=== PATIENT | male | born 1935 | race Caucasian/White ===

== ENCOUNTER 2023-07-18 23:58 | Inpatient (IN) | payer OTHER ==
[2023-07-19 01:19] LABS: ALT (SGPT) 18 U/L (8-55); AST (SGOT) 23 U/L (5-34); Albumin 3.2 g/dL (3.4-4.8); Alkaline Phosphatase 35 U/L (40-110); Anion Gap 15 mmol/L (10-20); BUN (Urea Nitrogen) 31 mg/dL (8.4-25.7); Bilirubin, Total 0.9 mg/dL (0.2-1.2); Calc. Creatinine Clearance 0 mL/min (70-130); Calcium 8.8 mg/dL (7.8-10.44); Carbon Dioxide 21 mmol/L (23-31); Chloride 109 mmol/L (98-107); Estimated GFR 67; Globulin 2.8 g/dL (2.4-3.5); Glucose 140 mg/dL (83-110); Lipase 6 U/L (8-78); Magnesium 1.5 mg/dL (1.6-2.6); Potassium 4.1 mmol/L (3.5-5.1); Sodium 141 mmol/L (136-145)
[2023-07-19 01:23] LABS: Critical Call Chem-Lactate ERS.CG1@0123
[2023-07-19 01:26] LABS: Troponin I Less than 0.010 ng/mL (< 0.028)
[2023-07-19] MEDS ORDERED: Piperacillin/Tazobactam 3.375 GM VIAL ONE (01:34)
[2023-07-19] MEDS ORDERED: Vancomycin 1 GM VIAL ONE (01:35)
[2023-07-19] MEDS ORDERED: Magnesium 2 GM/50 ML BAG (IN WATER) ONE (01:36)
[2023-07-19 01:42] LABS: Hematocrit 42.8 % (38.8-50.0); Hemoglobin 14.3 g/dL (13.5-17.5); Mean Corpuscular HGB CONC 33.4 g/dL (32.0-36.0); Mean Corpuscular Volume 98.8 fl (81.2-95.1); Mean Platelet Volume 10.3 fl (7.4-10.4); Platelet Count 178 10x3/uL (150-450); RBC Distribution Width 14.1 % (11.5-14.5); Red Blood Cell (RBC) Count 4.33 10x6/uL (4.32-5.72); White Blood Cell (WBC) Count 3.8 10x3/uL (3.5-10.5)
[2023-07-19 01:44] LABS: Bilirubin Neg (Negative); Blood, Urine Negative (Negative); Clarity Cloudy (Clear); Glucose, Urine (Dipstick) Normal (Negative); Ketone, Urine 5 mg/dL (Negative); Leukocyte 100 (Negative); Nitrite Negative (Negative); Protein, Urine (Dipstick) 30 mg/dl (Neg-Trace); Specific Gravity, Urine 1.025 (1.005-1.030); Urobilinogen Normal mg/dL (Less than 2)
[2023-07-19] MEDS ORDERED: Communication Order-Pharmacy FS PRN (01:48)
[2023-07-19] MEDS ORDERED: Ondansetron PF 4 MG/2 ML Vial IVP PRN (01:48)
[2023-07-19] MEDS ORDERED: Glucagon 1 MG/ML KIT IM PRN (01:48)
[2023-07-19] MEDS ORDERED: Acetaminophen 650 MG Suppository PR PRN (01:48)
[2023-07-19] MEDS ORDERED: Dextrose 5% in Water 1,000 ML IV PRN (01:48)
[2023-07-19] MEDS ORDERED: Ondansetron ODT 4 MG TAB PO PRN (01:48)
[2023-07-19] MEDS ORDERED: Dextrose 50% Abboject 50 ML SYRINGE SLOW IVP PRN (01:48)
[2023-07-19] MEDS ORDERED: HumaLOG 300 UNITS/3 ML VIAL SC PRN ×2 (01:48)
[2023-07-19 01:53] LABS: Band 16 % (5-11); Lymphocytes 19 % (21-51); Metamyelocyte 27 % (0-0); Myelocyte 11 % (0-0); Reactive Lymphocytes 23 % (0-10)
[2023-07-19 01:55] LABS: Bacteria/HPF 2+ HPF (None Seen); CAUTI Indications for Culture Alt mental st,lethar; Squamous Epithelial 0-3 HPF (0-3)
[2023-07-19 01:56] LABS: Urine Culture Reflex No No
[2023-07-19] MEDS ORDERED: cefTRIAXone\\ROCEPHIN 2 GM in Sodium Chloride 0.9% 100 ML IVPB SCH (02:00)
[2023-07-19 02:05] LABS: Reflex for Review?? YES
[2023-07-19 02:09] LABS: Dohle Bodies SLIGHT
[2023-07-19 02:10] LABS: Platelet Adequacy Comment Appears Adequate
[2023-07-19 02:12] LABS: MDiff Complete? YES
[2023-07-19 02:17] LABS: SARS-CoV-2 NAA Rapid Test Not Detected (NotDetected)
[2023-07-19 04:10] LABS: ALT (SGPT) 19 U/L (8-55); AST (SGOT) 24 U/L (5-34); Albumin 3.2 g/dL (3.4-4.8); Alkaline Phosphatase 36 U/L (40-110); Anion Gap 16 mmol/L (10-20); BUN (Urea Nitrogen) 28 mg/dL (8.4-25.7); Bilirubin, Total 1.1 mg/dL (0.2-1.2); Calc. Creatinine Clearance 0 mL/min (70-130); Calcium 8.6 mg/dL (7.8-10.44); Carbon Dioxide 20 mmol/L (23-31); Chloride 110 mmol/L (98-107); Estimated GFR 77; Globulin 2.7 g/dL (2.4-3.5); Glucose 129 mg/dL (83-110); Phosphorus 2.1 mg/dL (2.3-4.7); Potassium 4.1 mmol/L (3.5-5.1); Protein, Total 5.9 g/dL (5.8-8.1); Sodium 142 mmol/L (136-145)
[2023-07-19 04:11] LABS: Critical Call Chem-Lactate ERS.CG1@0410; Lactic Acid 4.4 mmol/L (0.5-2.2)
[2023-07-19 04:41] LABS: Hematocrit 40.8 % (38.8-50.0); Hemoglobin 13.9 g/dL (13.5-17.5); Mean Corpuscular HGB CONC 34.1 g/dL (32.0-36.0); Mean Corpuscular Hemoglobin 33.4 pg (27.0-33.0); Mean Corpuscular Volume 98.1 fl (81.2-95.1); Mean Platelet Volume 10.4 fl (7.4-10.4); Platelet Count 156 10x3/uL (150-450); RBC Distribution Width 14.5 % (11.5-14.5); Red Blood Cell (RBC) Count 4.16 10x6/uL (4.32-5.72); White Blood Cell (WBC) Count 4.5 10x3/uL (3.5-10.5)
[2023-07-19] MEDS ORDERED: Azithromycin 500 MG VIAL ONE (04:54)
[2023-07-19 04:55] LABS: Band 15 % (5-11); Eosinophils 1 % (0-10); Lymphocytes 24 % (21-51); Metamyelocyte 45 % (0-0); Myelocyte 7 % (0-0); Nucleated RBC (Manual Ct) 1 % (0); Other Cell Types 3; Promyelocytes 1 % (0-0); Reactive Lymphocytes 3 % (0-10)
[2023-07-19 04:58] LABS: MDiff Complete? YES; Platelet Adequacy Comment Appears Adequate
[2023-07-19] MEDS: Azithromycin 500 MG in Sodium Chloride 0.9% 250 ML 250 ML IVPB SCH (06:04)
[2023-07-19] MEDS: Lactated Ringer's 1,000 ML IV SCH ×2 (06:04→23:41)
[2023-07-19] MEDS ORDERED: Iopamidol 370 76% 100 ML VIAL ONE (08:57)
[2023-07-19] MEDS ORDERED: Famotidine/PF 20 mg/2ml Vial SLOW IVP SCH (09:00)
[2023-07-19] MEDS ORDERED: Enoxaparin 40 MG (0.4 mL) SYRINGE ONE (09:16)
[2023-07-19] MEDS ORDERED: Cefepime 2 GM VIAL ONE (09:16)
[2023-07-19] MEDS ORDERED: Clopidogrel Bisulfate 75 MG TAB ONE (09:16)
[2023-07-19] MEDS ORDERED: Famotidine/PF 20 mg/2ml Vial ONE (09:16)
[2023-07-19] MEDS: Enoxaparin 40 MG (0.4 mL) SYRINGE SC SCH (09:19)
[2023-07-19] MEDS: Clopidogrel Bisulfate 75 MG TAB PO SCH (09:19)
[2023-07-19] MEDS: Cefepime 2 GM in Sodium Chloride 0.9% 100 ML IVPB SCH (09:19)
[2023-07-19] MEDS ORDERED: Famotidine/PF 20 mg/2ml Vial SLOW IVP PRN (16:15)
[2023-07-19 22:38] VITALS: BMI 24.4
[2023-07-19] MEDS ORDERED: Furosemide 20 MG (2 mL) VIAL SLOW IVP SCH (23:30)
[2023-07-20] MEDS: Vancomycin 1 GM in Sodium Chloride 0.9% 250 ML 250 ML IVPB SCH ×2 (00:25→13:42)
[2023-07-20] MEDS: Famotidine 20 MG TAB PO SCH ×4 (00:26→21:34)
[2023-07-20] MEDS: Atorvastatin Calcium 40 MG TAB PO SCH ×2 (00:53→21:34)
[2023-07-20] MEDS: Cefepime 2 GM in Sodium Chloride 0.9% 100 ML IVPB SCH ×3 (00:53→21:35)
[2023-07-20] MEDS ORDERED: FLU VACC QS2023(65UP)/MF59C/PF 60 MCG/0.5 ML SYRINGE IM ONE (02:00)
[2023-07-20 04:42] LABS: Hematocrit 35.4 % (38.8-50.0); Hemoglobin 12.2 g/dL (13.5-17.5); Mean Corpuscular HGB CONC 34.5 g/dL (32.0-36.0); Mean Corpuscular Hemoglobin 33.3 pg (27.0-33.0); Mean Corpuscular Volume 96.7 fl (81.2-95.1); Mean Platelet Volume 10.5 fl (7.4-10.4); Platelet Count 145 10x3/uL (150-450); RBC Distribution Width 14.2 % (11.5-14.5); Red Blood Cell (RBC) Count 3.66 10x6/uL (4.32-5.72)
[2023-07-20 04:46] LABS: ALT (SGPT) 17 U/L (8-55); AST (SGOT) 25 U/L (5-34); Albumin 2.9 g/dL (3.4-4.8); Alkaline Phosphatase 45 U/L (40-110); Anion Gap 12 mmol/L (10-20); BUN (Urea Nitrogen) 22 mg/dL (8.4-25.7); Bilirubin, Total 0.7 mg/dL (0.2-1.2); Calc. Creatinine Clearance 66 mL/min (70-130); Calcium 8.8 mg/dL (7.8-10.44); Carbon Dioxide 23 mmol/L (23-31); Chloride 108 mmol/L (98-107); Estimated GFR 85; Globulin 2.8 g/dL (2.4-3.5); Glucose 113 mg/dL (83-110); Magnesium 1.9 mg/dL (1.6-2.6); Potassium 3.4 mmol/L (3.5-5.1); Protein, Total 5.7 g/dL (5.8-8.1); Sodium 140 mmol/L (136-145)
[2023-07-20 05:20] LABS: Band 26 % (5-11); Lymphocytes 11 % (21-51); Metamyelocyte 44 % (0-0); Monocytes 2 % (0-10); Myelocyte 4 % (0-0); Neutrophil 6 % (42-75); Other Cell Types 1; Reactive Lymphocytes 6 % (0-10)
[2023-07-20 05:22] LABS: Poikilocytosis SLIGHT = 6-15 cells (100X) (0-5/hpf)
[2023-07-20 05:23] LABS: Crenated RBC SLIGHT = 1-5 cells (100X) (None Seen); MDiff Complete? YES; Platelet Adequacy Comment Appears Adequate
[2023-07-20 05:27] LABS: White Blood Cell (WBC) Count 10.8 10x3/uL (3.5-10.5)
[2023-07-20] MEDS: Azithromycin 500 MG in Sodium Chloride 0.9% 250 ML 250 ML IVPB SCH (05:41)
[2023-07-20 06:19] LABS: Bilirubin Neg (Negative); Blood, Urine 25 (Negative); Clarity Clear (Clear); Glucose, Urine (Dipstick) Normal (Negative); Ketone, Urine Negative (Negative); Leukocyte Negative (Negative); Nitrite Negative (Negative); Protein, Urine (Dipstick) 30 mg/dl (Neg-Trace); Specific Gravity, Urine 1.015 (1.005-1.030); Urobilinogen Normal mg/dL (Less than 2)
[2023-07-20] MEDS: Acetaminophen 325 MG TAB PO PRN ×2 (06:41→10:16)
[2023-07-20 07:06] LABS: Legionella Urinary Ag Negative (Negative)
[2023-07-20 08:09] LABS: Oval Fat Bodies/HPF Rare HPF (None Seen)
[2023-07-20 08:10] LABS: Bacteria/HPF None Seen HPF (None Seen); RBC/HPF 0-3 HPF (0-3); Squamous Epithelial 0-3 HPF (0-3); WBC/HPF 0-3 HPF (0-3)
[2023-07-20] MEDS: Enoxaparin 40 MG (0.4 mL) SYRINGE SC SCH (10:15)
[2023-07-20] MEDS: Clopidogrel Bisulfate 75 MG TAB PO SCH (10:15)
[2023-07-20 13:46] LABS: Hemoglobin A1c 6.6 % (4.0-6.0)
[2023-07-20] MEDS ORDERED: Furosemide 20 MG (2 mL) VIAL SLOW IVP SCH (16:00)
[2023-07-20] MEDS ORDERED: Potassium Chloride 20 MEQ TAB PO SCH (17:00)
[2023-07-21 05:52] LABS: ALT (SGPT) 21 U/L (8-55); AST (SGOT) 23 U/L (5-34); Alkaline Phosphatase 51 U/L (40-110); Anion Gap 11 mmol/L (10-20); BUN (Urea Nitrogen) 21 mg/dL (8.4-25.7); Bilirubin, Total 0.8 mg/dL (0.2-1.2); Calc. Creatinine Clearance 73 mL/min (70-130); Calcium 8.8 mg/dL (7.8-10.44); Carbon Dioxide 25 mmol/L (23-31); Chloride 106 mmol/L (98-107); Estimated GFR 87; Globulin 3.1 g/dL (2.4-3.5); Glucose 101 mg/dL (83-110); Potassium 3.2 mmol/L (3.5-5.1); Protein, Total 6.1 g/dL (5.8-8.1); Sodium 139 mmol/L (136-145)
[2023-07-21] MEDS: Azithromycin 500 MG in Sodium Chloride 0.9% 250 ML 250 ML IVPB SCH (05:52)
[2023-07-21 05:58] LABS: Hematocrit 36.3 % (38.8-50.0); Hemoglobin 12.9 g/dL (13.5-17.5); Mean Corpuscular HGB CONC 35.5 g/dL (32.0-36.0); Mean Corpuscular Hemoglobin 33.9 pg (27.0-33.0); Mean Corpuscular Volume 95.5 fl (81.2-95.1); Mean Platelet Volume 10.5 fl (7.4-10.4); Platelet Count 160 10x3/uL (150-450); RBC Distribution Width 13.8 % (11.5-14.5); White Blood Cell (WBC) Count 12.7 10x3/uL (3.5-10.5)
[2023-07-21] MEDS: Acetaminophen 325 MG TAB PO PRN ×2 (06:24→21:35)
[2023-07-21 06:38] LABS: MDiff Complete? YES
[2023-07-21 06:51] LABS: Band 33 % (5-11); Eosinophils 1 % (0-10); Lymphocytes 12 % (21-51); Metamyelocyte 11 % (0-0); Monocytes 4 % (0-10); Myelocyte 2 % (0-0); Neutrophil 37 % (42-75)
[2023-07-21 06:52] LABS: Anisocytosis MODERATE=16-30 cells (100X) (0-5/hpf)
[2023-07-21 06:53] LABS: Crenated RBC SLIGHT = 1-5 cells (100X) (None Seen); Poikilocytosis SLIGHT = 6-15 cells (100X) (0-5/hpf)
[2023-07-21 06:57] LABS: Platelet Adequacy Comment Appears Adequate
[2023-07-21 07:46] LABS: Vancomycin, Trough 6.8 ug/mL
[2023-07-21] MEDS ORDERED: Vancomycin 1 GM in Sodium Chloride 0.9% 250 ML 250 ML IVPB SCH (08:00)
[2023-07-21] MEDS: Enoxaparin 40 MG (0.4 mL) SYRINGE SC SCH (08:53)
[2023-07-21] MEDS: Clopidogrel Bisulfate 75 MG TAB PO SCH (08:54)
[2023-07-21] MEDS: Cefepime 2 GM in Sodium Chloride 0.9% 100 ML IVPB SCH ×2 (08:54→21:37)
[2023-07-21] MEDS: Famotidine 20 MG TAB PO SCH ×2 (08:54→21:36)
[2023-07-21] MEDS: Atorvastatin Calcium 40 MG TAB PO SCH (21:36)
[2023-07-22 05:17] LABS: ALT (SGPT) 35 U/L (8-55); AST (SGOT) 29 U/L (5-34); Albumin 3.1 g/dL (3.4-4.8); Alkaline Phosphatase 57 U/L (40-110); Anion Gap 11 mmol/L (10-20); BUN (Urea Nitrogen) 18 mg/dL (8.4-25.7); Bilirubin, Total 0.8 mg/dL (0.2-1.2); Calc. Creatinine Clearance 71 mL/min (70-130); Calcium 9.2 mg/dL (7.8-10.44); Carbon Dioxide 26 mmol/L (23-31); Chloride 106 mmol/L (98-107); Estimated GFR 87; Globulin 3.4 g/dL (2.4-3.5); Glucose 106 mg/dL (83-110); Potassium 3.4 mmol/L (3.5-5.1); Protein, Total 6.5 g/dL (5.8-8.1); Sodium 140 mmol/L (136-145)
[2023-07-22 05:30] LABS: Hematocrit 38.1 % (38.8-50.0); Hemoglobin 13.4 g/dL (13.5-17.5); Mean Corpuscular HGB CONC 35.2 g/dL (32.0-36.0); Mean Corpuscular Hemoglobin 33.5 pg (27.0-33.0); Mean Corpuscular Volume 95.3 fl (81.2-95.1); Mean Platelet Volume 10.3 fl (7.4-10.4); Platelet Count 169 10x3/uL (150-450); White Blood Cell (WBC) Count 9.5 10x3/uL (3.5-10.5)
[2023-07-22 05:32] LABS: MDiff Complete? YES
[2023-07-22 06:29] LABS: Band 9 % (5-11); Eosinophils 4 % (0-10); Lymphocytes 12 % (21-51); Monocytes 11 % (0-10); Neutrophil 62 % (42-75); Reactive Lymphocytes 2 % (0-10)
[2023-07-22 06:32] LABS: RBC Morph Comment Within Normal Limits
[2023-07-22 06:33] LABS: Platelet Adequacy Comment Appears Adequate
[2023-07-22] MEDS: Famotidine 20 MG TAB PO SCH ×2 (09:13→21:00)
[2023-07-22] MEDS: Clopidogrel Bisulfate 75 MG TAB PO SCH (09:13)
[2023-07-22] MEDS: Enoxaparin 40 MG (0.4 mL) SYRINGE SC SCH (09:14)
[2023-07-22] MEDS: Cefepime 2 GM in Sodium Chloride 0.9% 100 ML IVPB SCH ×2 (09:26→20:59)
[2023-07-22] MEDS: Acetaminophen 325 MG TAB PO PRN (09:33)
[2023-07-22] MEDS ORDERED: guaiFENesin/Codeine Phosphate 100 mg/10 mg 5 ml UD Cup PO PRN (14:49)
[2023-07-22] MEDS ORDERED: Polyethylene Glycol 3350 17 GM Packet PO SCH (15:00)
[2023-07-22] MEDS: Atorvastatin Calcium 40 MG TAB PO SCH (21:00)
[2023-07-23] MEDS ORDERED: Polyethylene Glycol 3350 17 GM Packet PO SCH (09:00)
[2023-07-23] MEDS: Cefepime 2 GM in Sodium Chloride 0.9% 100 ML IVPB SCH (09:36)
[2023-07-23] MEDS: Clopidogrel Bisulfate 75 MG TAB PO SCH (09:37)
[2023-07-23] MEDS: Enoxaparin 40 MG (0.4 mL) SYRINGE SC SCH (09:37)
[2023-07-23] MEDS: Famotidine 20 MG TAB PO SCH (09:37)
[2023-07-23] MEDS: Acetaminophen 325 MG TAB PO PRN (12:41)
[2023-07-23] MEDS ORDERED: Amlodipine 10 MG TAB PO SCH ×2 (13:00)
[2023-07-23 14:10] VITALS: BP 179/87; TEMP 97.3
[2023-07-24] MEDS ORDERED: Amlodipine 10 MG TAB PO SCH (09:00)
== END 2023-07-23 17:00 | disposition home or self-care (01) | DRG 871 ==
LOC: CSHERS 23:58 → CSHERHOLD 07-19 01:48 → CSHTELE 07-19 20:33
PROVIDERS: ADMIT Family Medicine; ATTEND Internal Medicine
DX: A40.3 Sepsis due to Streptococcus pneumoniae (principal); J13 Pneumonia due to Streptococcus pneumoniae; J96.01 Acute respiratory failure with hypoxia; R65.20 Severe sepsis without septic shock; I69.354 Hemiplegia and hemiparesis following cerebral infarction affecting left non-dominant side; I10 Essential (primary) hypertension; E11.65 Type 2 diabetes mellitus with hyperglycemia; R19.7 Diarrhea, unspecified; E86.0 Dehydration; Z11.52 Encounter for screening for COVID-19; Z98.890 Other specified postprocedural states
CPT/HCPCS: 36415; 36416; 71045; 71275; 80053; 80202; 81001; 83036; 83605; 83690; 83735; 83880; 84100; 84145; 84443; 84484; 85025; 85060; 87040; 87077; 87081; 87086; 87149; 87186; 87899; 93005; 93306; 94760; 96361; 96365; 96366; 96368; 96375; J0456; J0692; J1650; J1940; J2543; J3370; J3475; J3490; J7050; J7120; Q9967; S0028